=== PATIENT | male | born 1965 | race Two or more races ===

== ENCOUNTER 2017-03-30 19:11 | Emergency (ER) | payer MEDICAID, OTHER ==
[~2017-03-30] VITALS: Ht 177.8 cm; Wt 72.6 kg
[2017-03-30 19:20] VITALS: BP 165/96
[2017-03-31] MEDS ORDERED: THIAMINE INJ 100 MG, MULTIPLE VITAMIN 10 ML, FOLIC ACID 1 MG, MAGNESIUM SULF SDV 50% 8 ... IV SCH ×5 (12:00)
== END 2017-03-30 21:06 | disposition left against medical advice (07) ==
LOC: ER 19:18
DX: F10.129 Alcohol abuse with intoxication, unspecified (principal); Z59.0 Homelessness; Z87.891 Personal history of nicotine dependence

== ENCOUNTER 2017-03-31 07:12 | Emergency (ER) | payer MEDICAID ==
[~2017-03-31] VITALS: Ht 180.3 cm; Wt 81.6 kg
[2017-03-31 08:08] VITALS: BP 112/78
== END 2017-03-31 08:28 | disposition home or self-care (01) ==
LOC: ER 07:12
DX: L02.424 Furuncle of left upper limb (principal); L02.423 Furuncle of right upper limb; F10.10 Alcohol abuse, uncomplicated; Z87.891 Personal history of nicotine dependence; Z59.0 Homelessness

== ENCOUNTER 2017-05-10 20:33 | Emergency (ER) | payer MEDICAID ==
[~2017-05-10] VITALS: Ht 180.3 cm; Wt 79.4 kg
[2017-05-11 04:52] VITALS: BP 124/88
[2017-05-11] MEDS ORDERED: SODIUM CHLORIDE 0.9% 1,000 ML IVB ONE (04:55)
== END 2017-05-11 06:36 | disposition home or self-care (01) ==
LOC: ER 20:37
DX: F10.129 Alcohol abuse with intoxication, unspecified (principal); Z59.0 Homelessness; Z87.891 Personal history of nicotine dependence
CPT/HCPCS: 36415; 80320; 93005; 96360

== ENCOUNTER 2017-05-17 19:38 | Emergency (ER) | payer MEDICAID ==
[~2017-05-17] VITALS: Ht 182.9 cm; Wt 86.2 kg
[2017-05-17] MEDS ORDERED: SODIUM CHLORIDE 0.9% 1,000 ML IVB ONE (21:05)
[2017-05-17 22:06] LABS: Basophils # (auto) 0 uL; Basophils % (auto) 0.7 % (0.0-2.0); CONDITION Y; DEFINITIVE SEE PRINTOUT; Eosinophils # (auto) 0.1 uL; Eosinophils % (auto) 3.1 % (0.0-7.0); Hematocrit 36.5 % (41.0-53.0); Hemoglobin 12.5 g/dL (13.5-17.5); Lymphocytes # (auto) 2.1 uL; Lymphocytes % (auto) 47.4 % (10.0-50.0); Mean Corpuscular Hemoglobin 37.8 pg (28.0-32.0); Mean Corpuscular Hgb Conc. 34.2 g/dL (32.0-36.0); Mean Corpuscular Volume 110.6 fL (80.0-100.0); Mean Platelet Volume 7.3 fL (7.4-10.4); Monocytes # (auto) 0.3 uL; Monocytes % (auto) 6.2 % (0.0-12.0); Neutrophils # (auto) 1.9 uL; Neutrophils % (auto) 42.6 % (37.0-80.0); Platelet Count (auto) 97 10^3/uL (140-450); Red Cell Distribution Width 13.5 % (11.6-16.0); White Blood Cell 4.4 10^3/uL (4.4-10.8)
[2017-05-17 22:32] LABS: Acetaminophen < 2.0 ug/mL (10-30); Salicylate < 1.7 mg/dL (2.8-20.0)
[2017-05-17 22:33] LABS: Albumin 3.4 g/dL (3.4-5.0); BUN/Creatinine Ratio 21.3; Bilirubin, Total 0.5 mg/dL (0.2-1.0); Calcium 7.8 mg/dL (8.5-10.1); Potassium 3.3 mmol/L (3.5-5.1); Total Protein 7.2 g/dL (6.4-8.2)
[2017-05-17 23:08] LABS: Macrocytosis Moderate; Platelet Estimate Decreased
[2017-05-18 04:52] VITALS: BP 112/62
== END 2017-05-18 04:37 | disposition home or self-care (01) ==
LOC: ER 19:38 → EDBD 19:38 → ER 05-18 04:37
DX: F10.129 Alcohol abuse with intoxication, unspecified (principal); R41.82 Altered mental status, unspecified; Z87.891 Personal history of nicotine dependence; Z59.0 Homelessness
CPT/HCPCS: 36415; 80053; 80320; 80329; 85025; 93971; 96360; 96361; 99285; J7030

== ENCOUNTER 2017-05-24 12:09 | Inpatient (IN) | payer MEDICAID ==
[~2017-05-24] VITALS: Ht 180.3 cm; Wt 83.3 kg
[2017-05-24] MEDS ORDERED: LORazepam 2MG/ML-1ML VIAL IV ONE (13:00)
[2017-05-24] MEDS ORDERED: SODIUM CHLORIDE 0.9% 1,000 ML IV ONE (13:00)
[2017-05-24 13:12] LABS: Basophils # (auto) 0 uL; Basophils % (auto) 0.9 % (0.0-2.0); CONDITION Y; DEFINITIVE SEE PRINTOUT; Eosinophils # (auto) 0.2 uL; Eosinophils % (auto) 4.6 % (0.0-7.0); Hematocrit 40.8 % (41.0-53.0); Hemoglobin 14.2 g/dL (13.5-17.5); Lymphocytes # (auto) 2.1 uL; Lymphocytes % (auto) 43.4 % (10.0-50.0); Mean Corpuscular Hemoglobin 38.7 pg (28.0-32.0); Mean Corpuscular Hgb Conc. 34.8 g/dL (32.0-36.0); Mean Corpuscular Volume 111.2 fL (80.0-100.0); Mean Platelet Volume 6.7 fL (7.4-10.4); Monocytes # (auto) 0.3 uL; Monocytes % (auto) 6.7 % (0.0-12.0); Neutrophils # (auto) 2.2 uL; Neutrophils % (auto) 44.4 % (37.0-80.0); Platelet Count (auto) 125 10^3/uL (140-450); Red Cell Distribution Width 13.7 % (11.6-16.0); White Blood Cell 4.9 10^3/uL (4.4-10.8)
[2017-05-24] MEDS ORDERED: THIAMINE INJ 100 MG, MULTIPLE VITAMIN 10 ML, FOLIC ACID 1 MG, MAGNESIUM SULF SDV 50% 8 ... IV ONE ×5 (13:15)
[2017-05-24 13:39] LABS: Albumin 3.6 g/dL (3.4-5.0); BUN/Creatinine Ratio 21.9; Bilirubin, Total 0.6 mg/dL (0.2-1.0); Calcium 8.4 mg/dL (8.5-10.1); Potassium 3.5 mmol/L (3.5-5.1); Total Protein 7.7 g/dL (6.4-8.2)
[2017-05-24] MEDS: SODIUM CHLORIDE 0.9% 1,000 ML IV SCH (17:14)
[2017-05-24] MEDS ORDERED: HYDROcodone-ACET 5/325MG TAB PO PRN (17:15)
[2017-05-24] MEDS ORDERED: LORazepam 2MG/ML-1ML VIAL IV PRN (17:15)
[2017-05-24] MEDS ORDERED: DOCUSATE SOD 100 MG CAP PO PRN (17:15)
[2017-05-24] MEDS ORDERED: ACETAMINOPHEN 325 MG TAB PO PRN (17:15)
[2017-05-24] MEDS ORDERED: TEMAZEPAM 15 MG CAP PO PRN (17:15)
[2017-05-24] MEDS ORDERED: MORPHINE SULF INJ 2 MG/ML SYRINGE 1ML IV PRN ×2 (17:15)
[2017-05-24] MEDS ORDERED: ONDANSETRON HCL 4 MG/2 ML VIAL IV PRN (17:15)
[2017-05-24] MEDS ORDERED: ALUM & MAG HYDROX-SIMETH LIQ(MAALOX) 30 ML PO PRN (17:15)
[2017-05-24] MEDS ORDERED: NITROGLYCERIN 0.4 MG SL TAB SL PRN (17:15)
[2017-05-24 17:53] LABS: B-Type Natriuretic Peptide 7.15 pg/mL (0-100)
[2017-05-24] MEDS: ATENOLOL 25 MG TAB PO SCH (22:09)
[2017-05-24] MEDS: GABAPENTIN 300 MG CAP PO SCH (22:09)
[2017-05-24] MEDS: FAMOTIDINE 20 MG TAB PO SCH (22:09)
[2017-05-25] VITALS: BP 138/81
[2017-05-25] MEDS: SODIUM CHLORIDE 0.9% 1,000 ML IV SCH ×3 (01:25→18:05)
[2017-05-25 05:00] VITALS: BP 125/87
[2017-05-25] MEDS: GABAPENTIN 300 MG CAP PO SCH ×3 (06:00→21:35)
[2017-05-25 07:04] LABS: BUN/Creatinine Ratio 22.2; Bilirubin, Total 0.7 mg/dL (0.2-1.0); Total Protein 6.7 g/dL (6.4-8.2)
[2017-05-25 07:15] LABS: Basophils # (auto) 0 uL; CONDITION Y; DEFINITIVE SEE PRINTOUT; Eosinophils # (auto) 0.1 uL; Eosinophils % (auto) 2.9 % (0.0-7.0); Hematocrit 33.8 % (41.0-53.0); Hemoglobin 11.8 g/dL (13.5-17.5); Lymphocytes # (auto) 1.3 uL; Lymphocytes % (auto) 40.9 % (10.0-50.0); Mean Corpuscular Hemoglobin 38.5 pg (28.0-32.0); Mean Corpuscular Volume 110.2 fL (80.0-100.0); Mean Platelet Volume 7.3 fL (7.4-10.4); Monocytes # (auto) 0.3 uL; Monocytes % (auto) 8.4 % (0.0-12.0); Neutrophils # (auto) 1.5 uL; Neutrophils % (auto) 46.8 % (37.0-80.0); Platelet Count (auto) 88 10^3/uL (140-450); Potassium 3.7 mmol/L (3.5-5.1); Red Cell Distribution Width 14.1 % (11.6-16.0); White Blood Cell 3.2 10^3/uL (4.4-10.8)
[2017-05-25 08:43] VITALS: BP 116/70
[2017-05-25] MEDS: FAMOTIDINE 20 MG TAB PO SCH ×2 (09:26→21:36)
[2017-05-25] MEDS: ASPirin-EC 81 mg tab PO SCH (09:26)
[2017-05-25] MEDS: MULTIPLE VITAMIN TAB PO SCH (09:26)
[2017-05-25] MEDS: ATENOLOL 25 MG TAB PO SCH ×2 (09:26→21:35)
[2017-05-25] MEDS: chlordiazePOXIDE HCL 25 MG CAP PO PRN ×2 (09:32→21:33)
[2017-05-25 12:48] VITALS: BP 125/85
[2017-05-25 16:23] VITALS: BP 127/83
[2017-05-25 21:05] VITALS: BP 137/71
[2017-05-26] MEDS: SODIUM CHLORIDE 0.9% 1,000 ML IV SCH (03:11)
[2017-05-26 05:25] VITALS: BP 130/79
[2017-05-26] MEDS: GABAPENTIN 300 MG CAP PO SCH (05:39)
[2017-05-26] MEDS: chlordiazePOXIDE HCL 25 MG CAP PO PRN (05:39)
[2017-05-26 06:48] LABS: Urine RBC None Seen /hpf (0 - 3)
[2017-05-26 07:01] LABS: Urine Bilirubin Negative (Negative); Urine Blood Negative /uL (Negative); Urine Color Yellow (Yellow); Urine Glucose Normal (Normal); Urine Ketone Negative (Negative); Urine Nitrite Negative (Negative); Urine Urobilinogen Normal (Negative); Urine pH 7.5 (5.0-8.0)
[2017-05-26 08:57] VITALS: BP 139/84
[2017-05-26] MEDS: MULTIPLE VITAMIN TAB PO SCH (10:09)
[2017-05-26] MEDS: ASPirin-EC 81 mg tab PO SCH (10:09)
[2017-05-26] MEDS: ATENOLOL 25 MG TAB PO SCH (10:10)
[2017-05-26] MEDS: FAMOTIDINE 20 MG TAB PO SCH (10:10)
== END 2017-05-26 11:50 | disposition left against medical advice (07) | DRG 770 ==
LOC: EDBD 12:09 → ER 12:09 → TELE 12:10 → TELE-WESTW 23:30
PROVIDERS: ADMIT Internal Medicine; ATTEND Internal Medicine
DX: F10.121 Alcohol abuse with intoxication delirium (principal); G92 Toxic encephalopathy; D69.6 Thrombocytopenia, unspecified; E83.51 Hypocalcemia; I67.2 Cerebral atherosclerosis; I65.23 Occlusion and stenosis of bilateral carotid arteries; E86.0 Dehydration; R94.5 Abnormal results of liver function studies; G40.909 Epilepsy, unspecified, not intractable, without status epilepticus; D63.8 Anemia in other chronic diseases classified elsewhere; F17.210 Nicotine dependence, cigarettes, uncomplicated; Z59.0 Homelessness
CPT/HCPCS: 36415; 70450; 71020; 80053; 80307; 80320; 81001; 83880; 84443; 85025; 87086; 87088; 87186; 93005; 93306

== ENCOUNTER 2017-06-09 18:10 | Emergency (ER) | payer MEDICAID ==
[~2017-06-09] VITALS: Ht 180.3 cm; Wt 79.4 kg
[2017-06-09 19:34] LABS: Basophils # (auto) 0.1 uL; Basophils % (auto) 1.1 % (0.0-2.0); Eosinophils # (auto) 0.4 uL; Eosinophils % (auto) 5.5 % (0.0-7.0); Hematocrit 38.9 % (41.0-53.0); Hemoglobin 13.4 g/dL (13.5-17.5); Lymphocytes # (auto) 3.8 uL; Lymphocytes % (auto) 47.7 % (10.0-50.0); Mean Corpuscular Hemoglobin 38.8 pg (28.0-32.0); Mean Corpuscular Hgb Conc. 34.6 g/dL (32.0-36.0); Mean Corpuscular Volume 112.2 fL (80.0-100.0); Mean Platelet Volume 6.1 fL (6.9-10.8); Monocytes # (auto) 0.6 uL; Monocytes % (auto) 7.6 % (0.0-12.0); Neutrophils # (auto) 3.1 uL; Neutrophils % (auto) 38.1 % (37.0-80.0); Platelet Count (auto) 339 10^3/uL (140-450); Red Cell Distribution Width 13.2 % (11.8-14.3)
[2017-06-09 20:09] LABS: Chloride 110 mmol/L (98-107); Potassium 4.2 mmol/L (3.5-5.1); Sodium 145 mmol/L (136-145)
[2017-06-09 20:13] LABS: Albumin 3.6 g/dL (3.4-5.0); Anion Gap 9 (5-15); Aspartate Aminotransferase 77 U/L (15-37); BUN/Creatinine Ratio 13.4; Blood Urea Nitrogen 11 mg/dL (7-18); Calcium 8.3 mg/dL (8.5-10.1); Carbon Dioxide 26 mmol/L (21-32); GFR African American 126 mL/min; GFR Non-African American 104 mL/min; Glucose 92 mg/dL (74-106); Magnesium 2.1 mg/dL (1.6-2.6)
[2017-06-09 20:18] LABS: Alkaline Phosphatase 158 U/L (45-117); Bilirubin, Total 0.2 mg/dL (0.2-1.0); Total Protein 7.9 g/dL (6.4-8.2)
[2017-06-09 22:33] LABS: Anisocytosis Slight; Platelet Estimate Adequate
[2017-06-09 22:34] LABS: Macrocytosis Marked
[2017-06-10] MEDS ORDERED: SODIUM CHLORIDE 0.9% 500 ML IV ONE ×2 (01:15→02:45)
[2017-06-10] MEDS ORDERED: FOLIC ACID 1 MG in D5W 5% 50 ML IV ONE (03:30)
[2017-06-10] MEDS ORDERED: THIAMINE HCL 100 MG/ML 2ML VIAL IV ONE (03:30)
[2017-06-10 05:08] LABS: Urine Bilirubin Negative (Negative); Urine Blood Negative /uL (Negative); Urine Color Yellow (Yellow); Urine Glucose Normal (Normal); Urine Ketone Negative (Negative); Urine Nitrite Negative (Negative); Urine RBC <1 /hpf (0 - 3); Urine Urobilinogen Normal (Negative)
[2017-06-10 05:15] VITALS: BP 108/73
== END 2017-06-10 05:30 | disposition home or self-care (01) ==
LOC: EDBD 18:10 → ER 18:18
DX: G92 Toxic encephalopathy (principal); F10.129 Alcohol abuse with intoxication, unspecified; Z59.0 Homelessness; Z87.891 Personal history of nicotine dependence
CPT/HCPCS: 36415; 71020; 80053; 80307; 80320; 81001; 83735; 84484; 85025; 93005; 96361; 96374; 99285; J3411; J7030; J7060

== ENCOUNTER 2017-06-13 13:50 | Emergency (ER) | payer MEDICAID ==
[~2017-06-13] VITALS: Ht 182.9 cm; Wt 79.4 kg
[2017-06-13] MEDS ORDERED: THIAMINE INJ 100 MG, MULTIPLE VITAMIN 10 ML, FOLIC ACID 1 MG, MAGNESIUM SULF SDV 50% 8 ... IV ONE ×5 (14:14)
[2017-06-13 15:06] LABS: Albumin 3.2 g/dL (3.4-5.0); BUN/Creatinine Ratio 10.6; Bilirubin, Total 0.2 mg/dL (0.2-1.0); Calcium 7.8 mg/dL (8.5-10.1); Potassium 3.3 mmol/L (3.5-5.1); Total Protein 7.3 g/dL (6.4-8.2)
[2017-06-13 15:36] LABS: Basophils # (auto) 0.1 uL; Basophils % (auto) 1.2 % (0.0-2.0); Eosinophils % (auto) 12.4 % (0.0-7.0); Hematocrit 37.7 % (41.0-53.0); Hemoglobin 12.9 g/dL (13.5-17.5); Lymphocytes # (auto) 3.3 uL; Lymphocytes % (auto) 41.9 % (10.0-50.0); Mean Corpuscular Hemoglobin 38.2 pg (28.0-32.0); Mean Corpuscular Hgb Conc. 34.3 g/dL (32.0-36.0); Mean Corpuscular Volume 111.4 fL (80.0-100.0); Monocytes # (auto) 0.4 uL; Monocytes % (auto) 5.2 % (0.0-12.0); Neutrophils # (auto) 3.1 uL; Neutrophils % (auto) 39.3 % (37.0-80.0); Nucleated Red Blood Cells % 0.2 %; Platelet Count (auto) 245 10^3/uL (140-450); Red Cell Distribution Width 13.1 % (11.8-14.3)
[2017-06-13] MEDS ORDERED: SODIUM CHLORIDE 0.9% 1,000 ML IV ONE (15:45)
[2017-06-13 16:57] LABS: Macrocytosis Marked; Platelet Estimate Adequate
[2017-06-13 18:50] VITALS: BP 122/78
== END 2017-06-13 19:06 | disposition left against medical advice (07) ==
LOC: EDBD 13:50 → ER 13:55
DX: F10.129 Alcohol abuse with intoxication, unspecified (principal); Y90.8 Blood alcohol level of 240 mg/100 ml or more; Z87.891 Personal history of nicotine dependence; Z59.0 Homelessness
CPT/HCPCS: 36415; 80053; 80320; 85025; 94761; 96365; 96366; 99285; J3411; J3475; J7030

== ENCOUNTER 2017-06-28 15:15 | Emergency (ER) | payer MEDICAID ==
[~2017-06-28] VITALS: Ht 182.9 cm; Wt 77.1 kg
[2017-06-28 15:35] VITALS: BP 114/75
[2017-06-28 16:13] LABS: Basophils # (auto) 0.1 uL; Basophils % (auto) 0.8 % (0.0-2.0); Eosinophils # (auto) 0.8 uL; Mean Platelet Volume 6.1 fL (6.9-10.8); Monocytes # (auto) 0.5 uL; Neutrophils # (auto) 3.4 uL; Nucleated Red Blood Cells % 0.1 %
[2017-06-28 16:15] LABS: Eosinophils % (auto) 10.6 % (0.0-7.0); Hematocrit 37.7 % (41.0-53.0); Hemoglobin 13.2 g/dL (13.5-17.5); Lymphocytes # (auto) 2.9 uL; Lymphocytes % (auto) 37.4 % (10.0-50.0); Mean Corpuscular Hemoglobin 38.2 pg (28.0-32.0); Mean Corpuscular Volume 109.2 fL (80.0-100.0); Monocytes % (auto) 6.8 % (0.0-12.0); Neutrophils % (auto) 44.4 % (37.0-80.0); Platelet Count (auto) 225 10^3/uL (140-450); Red Cell Distribution Width 12.7 % (11.8-14.3); White Blood Cell 7.8 10^3/uL (4.4-10.8)
[2017-06-28 16:34] LABS: Albumin 3.2 g/dL (3.4-5.0); Alkaline Phosphatase 122 U/L (45-117); Anion Gap 11 (5-15); Aspartate Aminotransferase 38 U/L (15-37); BUN/Creatinine Ratio 17.1; Bilirubin, Total 0.2 mg/dL (0.2-1.0); Blood Urea Nitrogen 14 mg/dL (7-18); Calcium 8.3 mg/dL (8.5-10.1); Carbon Dioxide 23 mmol/L (21-32); Chloride 108 mmol/L (98-107); GFR African American 126 mL/min; GFR Non-African American 104 mL/min; Glucose 95 mg/dL (74-106); Magnesium 1.8 mg/dL (1.6-2.6); Potassium 3.1 mmol/L (3.5-5.1); Sodium 142 mmol/L (136-145); Total Protein 7.1 g/dL (6.4-8.2)
== END 2017-06-28 22:00 | disposition left against medical advice (07) ==
LOC: EDBD 15:15 → ER 15:30
DX: F10.10 Alcohol abuse, uncomplicated (principal); Z53.21 Procedure and treatment not carried out due to patient leaving prior to being seen by health care provider
CPT/HCPCS: 36415; 71020; 80053; 80320; 83735; 84484; 85025; 93005

== ENCOUNTER 2017-07-19 13:50 | Observation (INO) | payer MEDICAID ==
[~2017-07-19] VITALS: Ht 165.1 cm; Wt 81.6 kg
[2017-07-19 14:28] LABS: Basophils # (auto) 0.1 uL; Eosinophils # (auto) 0.4 uL; Nucleated Red Blood Cells % 0.1 %
[2017-07-19 14:29] LABS: Basophils % (auto) 0.9 % (0.0-2.0); Eosinophils % (auto) 4.4 % (0.0-7.0); Hematocrit 39.2 % (41.0-53.0); Hemoglobin 13.6 g/dL (13.5-17.5); Lymphocytes % (auto) 49.3 % (10.0-50.0); Mean Corpuscular Hemoglobin 37.4 pg (28.0-32.0); Mean Corpuscular Hgb Conc. 34.6 g/dL (32.0-36.0); Mean Corpuscular Volume 108.1 fL (80.0-100.0); Monocytes # (auto) 0.6 uL; Monocytes % (auto) 7.1 % (0.0-12.0); Neutrophils # (auto) 3.1 uL; Neutrophils % (auto) 38.3 % (37.0-80.0); Platelet Count (auto) 221 10^3/uL (140-450); Red Blood Cells 3.63 10^6/uL (4.5-5.90); Red Cell Distribution Width 13.5 % (11.8-14.3); White Blood Cell 8.1 10^3/uL (4.4-10.8)
[2017-07-19 15:02] LABS: Partial Thromboplastin Time 29.5 sec (22.64-33.71); Prothrombin Time 10.9 sec (9.37-12.3)
[2017-07-19 15:03] LABS: Alanine Aminotransferase 29 U/L (16-61); Albumin 3.5 g/dL (3.4-5.0); Alkaline Phosphatase 129 U/L (45-117); Anion Gap 12 (5-15); Aspartate Aminotransferase 40 U/L (15-37); BUN/Creatinine Ratio 14.9; Bilirubin, Total 0.3 mg/dL (0.2-1.0); Blood Urea Nitrogen 11 mg/dL (7-18); Calcium 7.9 mg/dL (8.5-10.1); Carbon Dioxide 22 mmol/L (21-32); Chloride 108 mmol/L (98-107); GFR African American 142 mL/min; GFR Non-African American 118 mL/min; Glucose 104 mg/dL (74-106); Magnesium 1.8 mg/dL (1.6-2.6); Potassium 3.6 mmol/L (3.5-5.1); Sodium 142 mmol/L (136-145); Total Protein 7.4 g/dL (6.4-8.2)
[2017-07-19 15:45] LABS: Amphetamine Screen, Urine NEGATIVE (NEGATIVE); Barbiturate Scree,Urine NEGATIVE (NEGATIVE); Benzodiazephine Screen, Urine NEGATIVE (NEGATIVE); Cannabinoid Screen, Urine NEGATIVE (NEGATIVE); Cocaine Screen, Urine NEGATIVE (NEGATIVE); Opiate Scree,Urine NEGATIVE (NEGATIVE); Phencyclidine Screen, Urine NEGATIVE (NEGATIVE)
[2017-07-19] MEDS ORDERED: SODIUM CHLORIDE 0.9% 1,000 ML IV ONE (16:00)
[2017-07-19] MEDS ORDERED: THIAMINE INJ 100 MG, MULTIPLE VITAMIN 10 ML, FOLIC ACID 1 MG, MAGNESIUM SULF SDV 50% 8 ... IV SCH ×5 (16:30)
[2017-07-19 23:02] VITALS: BP 124/81
== END 2017-07-20 01:24 | disposition home or self-care (01) | DRG 203 ==
LOC: EDUNIT# 13:50 → ER 13:55 → OVERFLOW 14:36 → ER 07-20 01:24
PROVIDERS: ADMIT Family Medicine; ATTEND Family Medicine
DX: R07.89 Other chest pain (principal); I10 Essential (primary) hypertension; F10.129 Alcohol abuse with intoxication, unspecified; R06.02 Shortness of breath; F17.200 Nicotine dependence, unspecified, uncomplicated
CPT/HCPCS: 36415; 70450; 71010; 80053; 80307; 80320; 83735; 84484; 85025; 85610; 85730; 93005; 96361; 96365; 99285; G0378; J3411; J3475; J7030

== ENCOUNTER 2017-08-03 20:32 | Emergency (ER) | payer MEDICAID ==
[~2017-08-03] VITALS: Ht 180.3 cm; Wt 77.1 kg
[2017-08-03 20:37] VITALS: BP 122/84
[2017-08-03 21:24] LABS: Basophils # (auto) 0 uL; Basophils % (auto) 0.8 % (0.0-2.0); Eosinophils # (auto) 0.3 uL; Neutrophils # (auto) 2.2 uL; White Blood Cell 5.9 10^3/uL (4.4-10.8)
[2017-08-03 21:31] LABS: Albumin 3.7 g/dL (3.4-5.0); Anion Gap 9 (5-15); Aspartate Aminotransferase 96 U/L (15-37); BUN/Creatinine Ratio 15.7; Blood Urea Nitrogen 14 mg/dL (7-18); Calcium 8.2 mg/dL (8.5-10.1); Carbon Dioxide 27 mmol/L (21-32); Chloride 107 mmol/L (98-107); GFR African American 115 mL/min; GFR Non-African American 95 mL/min; Glucose 97 mg/dL (74-106); Magnesium 1.8 mg/dL (1.6-2.6); Potassium 3.6 mmol/L (3.5-5.1); Sodium 143 mmol/L (136-145)
[2017-08-03 21:39] LABS: B-Type Natriuretic Peptide 7.41 pg/mL (0-100)
[2017-08-03 21:40] LABS: Alkaline Phosphatase 237 U/L (45-117); Bilirubin, Total 0.3 mg/dL (0.2-1.0); Total Protein 7.8 g/dL (6.4-8.2)
[2017-08-03 21:44] LABS: Eosinophils % (auto) 5.1 % (0.0-7.0); Hematocrit 39.6 % (41.0-53.0); Hemoglobin 13.9 g/dL (13.5-17.5); Mean Corpuscular Volume 105.7 fL (80.0-100.0); Mean Platelet Volume 6.7 fL (6.9-10.8); Monocytes # (auto) 0.4 uL; Monocytes % (auto) 7.6 % (0.0-12.0); Neutrophils % (auto) 36.5 % (37.0-80.0); Nucleated Red Blood Cells % 0.1 %; Temperature: 23.1 C (20.0-25.0)
[2017-08-03 22:05] LABS: Platelet Count (auto) 93 10^3/uL (140-450)
== END 2017-08-04 09:00 | disposition left against medical advice (07) ==
LOC: ER 20:32 → EDBD 20:32 → ER 08-04 09:00
DX: F10.10 Alcohol abuse, uncomplicated (principal); M79.605 Pain in left leg; M79.604 Pain in right leg; Z53.21 Procedure and treatment not carried out due to patient leaving prior to being seen by health care provider
CPT/HCPCS: 36415; 80053; 80320; 83735; 83880; 84484; 85025; 85379

== ENCOUNTER 2017-08-04 10:22 | Emergency (ER) | payer MEDICAID ==
[~2017-08-04] VITALS: Ht 182.9 cm; Wt 81.6 kg
[2017-08-04 10:57] VITALS: BP 127/83
== END 2017-08-04 11:26 | disposition home or self-care (01) ==
LOC: EDBD 10:22 → ER 10:22
DX: M79.1 Myalgia (principal); F17.210 Nicotine dependence, cigarettes, uncomplicated; F10.10 Alcohol abuse, uncomplicated; Z59.0 Homelessness

== ENCOUNTER 2017-08-05 00:03 | Emergency (ER) | payer MEDICAID ==
[2017-08-05 10:15] VITALS: BP 115/82
== END 2017-08-05 10:19 | disposition home or self-care (01) ==
LOC: EDBD 00:03 → ER 00:07
DX: F10.120 Alcohol abuse with intoxication, uncomplicated (principal); Z87.891 Personal history of nicotine dependence; Z59.0 Homelessness

== ENCOUNTER 2017-08-06 21:14 | Emergency (ER) | payer MEDICAID ==
[~2017-08-06] VITALS: Ht 182.9 cm; Wt 83.9 kg
[2017-08-06 22:41] LABS: Basophils # (auto) 0.1 uL; Basophils % (auto) 1.2 % (0.0-2.0); Eosinophils # (auto) 0.3 uL; Eosinophils % (auto) 5.1 % (0.0-7.0); Hematocrit 40.8 % (41.0-53.0); Lymphocytes # (auto) 2.5 uL; Lymphocytes % (auto) 43.8 % (10.0-50.0); Mean Corpuscular Hemoglobin 36.3 pg (28.0-32.0); Mean Corpuscular Hgb Conc. 34.4 g/dL (32.0-36.0); Mean Corpuscular Volume 105.4 fL (80.0-100.0); Mean Platelet Volume 6.6 fL (6.9-10.8); Monocytes # (auto) 0.4 uL; Monocytes % (auto) 6.9 % (0.0-12.0); Neutrophils # (auto) 2.5 uL; Nucleated Red Blood Cells % 0.1 %; Platelet Count (auto) 91 10^3/uL (140-450); White Blood Cell 5.8 10^3/uL (4.4-10.8)
[2017-08-06 23:04] LABS: Albumin 4.2 g/dL (3.4-5.0); BUN/Creatinine Ratio 13.8; Bilirubin, Total 0.5 mg/dL (0.2-1.0); Calcium 8.5 mg/dL (8.5-10.1); Potassium 3.3 mmol/L (3.5-5.1); Total Protein 8.2 g/dL (6.4-8.2)
[2017-08-06 23:14] LABS: Platelet Estimate Decreased
[2017-08-06 23:15] LABS: Anisocytosis Moderate; Macrocytosis Moderate
[2017-08-06 23:24] LABS: B-Type Natriuretic Peptide 16.54 pg/mL (0-100)
[2017-08-06 23:37] LABS: Temperature: 23.3 C (20.0-25.0)
[2017-08-07] MEDS ORDERED: SODIUM CHLORIDE 0.9% 1,000 ML IVB ONE (01:50)
[2017-08-07] MEDS ORDERED: KETOROLAC TROMETH 30 MG/ML 1ML VIAL IV ONE (02:00)
[2017-08-07 04:20] VITALS: BP 132/74
== END 2017-08-07 06:08 | disposition home or self-care (01) ==
LOC: EDBD 21:14 → EDUNIT# 21:14 → ER 21:18
DX: F10.129 Alcohol abuse with intoxication, unspecified (principal); Y90.8 Blood alcohol level of 240 mg/100 ml or more; Z87.891 Personal history of nicotine dependence; Z59.0 Homelessness
CPT/HCPCS: 36415; 80053; 80320; 83880; 85025; 96361; 96374; 99284; J1885; J7030

== ENCOUNTER 2017-08-19 22:06 | Emergency (ER) | payer MEDICAID ==
[~2017-08-19] VITALS: Ht 182.9 cm; Wt 81.6 kg
[2017-08-19 22:15] VITALS: BP 112/72
[2017-08-19] MEDS ORDERED: SODIUM CHLORIDE 0.9% 1,000 ML IV ONE (23:15)
[2017-08-19 23:45] LABS: Basophils # (auto) 0.1 uL; Basophils % (auto) 1.2 % (0.0-2.0); Eosinophils # (auto) 0.1 uL; Monocytes # (auto) 0.4 uL; Neutrophils # (auto) 3.2 uL; Nucleated Red Blood Cells % 0.1 %; White Blood Cell 4.8 10^3/uL (4.4-10.8)
[2017-08-19 23:47] LABS: Eosinophils % (auto) 1.3 % (0.0-7.0); Hematocrit 40.4 % (41.0-53.0); Hemoglobin 13.9 g/dL (13.5-17.5); Lymphocytes % (auto) 21.6 % (10.0-50.0); Mean Corpuscular Hemoglobin 36.9 pg (28.0-32.0); Mean Corpuscular Hgb Conc. 34.5 g/dL (32.0-36.0); Mean Platelet Volume 6.3 fL (6.9-10.8); Neutrophils % (auto) 66.9 % (37.0-80.0); Platelet Count (auto) 145 10^3/uL (140-450); Red Cell Distribution Width 15.2 % (11.8-14.3)
[2017-08-20 00:04] LABS: Acetaminophen < 2.0 ug/mL (10-30); Salicylate < 1.7 mg/dL (2.8-20.0)
[2017-08-20] MEDS ORDERED: SODIUM CHLORIDE 0.9% 1,000 ML IVB ONE (00:14)
[2017-08-20 00:17] LABS: Albumin 3.9 g/dL (3.4-5.0); BUN/Creatinine Ratio 11.3; Bilirubin, Total 0.3 mg/dL (0.2-1.0); Calcium 7.9 mg/dL (8.5-10.1); Magnesium 2.1 mg/dL (1.6-2.6); Potassium 3.5 mmol/L (3.5-5.1); Total Protein 7.9 g/dL (6.4-8.2)
== END 2017-08-20 04:29 | disposition home or self-care (01) ==
LOC: EDBD 22:06 → ER 22:11
DX: G92 Toxic encephalopathy (principal); F10.129 Alcohol abuse with intoxication, unspecified; Z59.0 Homelessness; Z87.891 Personal history of nicotine dependence
CPT/HCPCS: 36415; 80053; 80320; 80329; 83735; 85025; 99284; J7030

== ENCOUNTER 2017-08-21 20:50 | Emergency (ER) | payer MEDICAID ==
[~2017-08-21] VITALS: Ht 182.9 cm; Wt 77.1 kg
[2017-08-21 21:28] VITALS: BP 149/85
[2017-08-21 21:49] LABS: Basophils # (auto) 0.1 uL; Eosinophils # (auto) 0.4 uL; Hemoglobin 13.8 g/dL (13.5-17.5); Lymphocytes # (auto) 2.5 uL; Monocytes # (auto) 0.5 uL
[2017-08-21 21:51] LABS: Basophils % (auto) 1.4 % (0.0-2.0); Eosinophils % (auto) 5.5 % (0.0-7.0); Hematocrit 39.4 % (41.0-53.0); Lymphocytes % (auto) 38.2 % (10.0-50.0); Mean Corpuscular Hemoglobin 36.9 pg (28.0-32.0); Mean Corpuscular Hgb Conc. 35.1 g/dL (32.0-36.0); Mean Corpuscular Volume 105.1 fL (80.0-100.0); Mean Platelet Volume 5.9 fL (6.9-10.8); Monocytes % (auto) 8.4 % (0.0-12.0); Neutrophils % (auto) 46.5 % (37.0-80.0); Platelet Count (auto) 142 10^3/uL (140-450); Red Cell Distribution Width 14.7 % (11.8-14.3); White Blood Cell 6.4 10^3/uL (4.4-10.8)
[2017-08-21 22:08] LABS: Albumin 3.6 g/dL (3.4-5.0); BUN/Creatinine Ratio 13.2; Calcium 8.3 mg/dL (8.5-10.1); Potassium 3.7 mmol/L (3.5-5.1)
[2017-08-21 22:23] LABS: Bilirubin, Total 0.2 mg/dL (0.2-1.0); Total Protein 7.6 g/dL (6.4-8.2)
== END 2017-08-22 04:46 | disposition left against medical advice (07) ==
LOC: EDBD 20:50 → ER 20:56
DX: S00.31XA Abrasion of nose, initial encounter (principal); F10.10 Alcohol abuse, uncomplicated; R42 Dizziness and giddiness; Z53.21 Procedure and treatment not carried out due to patient leaving prior to being seen by health care provider; W22.8XXA Striking against or struck by other objects, initial encounter; Y93.89 Activity, other specified; Y92.89 Other specified places as the place of occurrence of the external cause; Y99.8 Other external cause status
CPT/HCPCS: 36415; 70450; 80053; 80320; 85025

== ENCOUNTER 2017-08-22 19:52 | Emergency (ER) | payer MEDICAID ==
[~2017-08-22] VITALS: Ht 182.9 cm; Wt 90.7 kg
[2017-08-22 20:00] VITALS: BP 146/72
== END 2017-08-22 21:12 | disposition left against medical advice (07) ==
LOC: EDUNIT# 19:52 → EDBD 19:52 → ER 19:56
DX: F10.10 Alcohol abuse, uncomplicated (principal); Z53.21 Procedure and treatment not carried out due to patient leaving prior to being seen by health care provider

== ENCOUNTER 2017-09-08 23:17 | Emergency (ER) | payer MEDICAID ==
[~2017-09-08] VITALS: Ht 182.9 cm; Wt 81.6 kg
[2017-09-08 23:29] VITALS: BP 111/70
[2017-09-08 23:54] LABS: Basophils # (auto) 0.1 uL; Hemoglobin 14.4 g/dL (13.5-17.5); Monocytes # (auto) 0.6 uL
[2017-09-08 23:56] LABS: Basophils % (auto) 0.8 % (0.0-2.0); Eosinophils # (auto) 0.4 uL; Eosinophils % (auto) 4.9 % (0.0-7.0); Hematocrit 42.3 % (41.0-53.0); Lymphocytes # (auto) 3.4 uL; Lymphocytes % (auto) 44.3 % (10.0-50.0); Mean Corpuscular Hemoglobin 36.8 pg (28.0-32.0); Mean Corpuscular Hgb Conc. 34.1 g/dL (32.0-36.0); Mean Corpuscular Volume 107.9 fL (80.0-100.0); Neutrophils # (auto) 3.2 uL; Nucleated Red Blood Cells % 0.1 %; Platelet Count (auto) 109 10^3/uL (140-450); Red Cell Distribution Width 15.4 % (11.8-14.3); White Blood Cell 7.7 10^3/uL (4.4-10.8)
[2017-09-09 00:28] LABS: BUN/Creatinine Ratio 14.5; Bilirubin, Total 0.4 mg/dL (0.2-1.0); Potassium 3.6 mmol/L (3.5-5.1); Total Protein 8.1 g/dL (6.4-8.2)
== END 2017-09-09 03:57 | disposition left against medical advice (07) ==
LOC: EDBD 23:17 → ER 23:23
DX: F10.10 Alcohol abuse, uncomplicated (principal); Z53.21 Procedure and treatment not carried out due to patient leaving prior to being seen by health care provider
CPT/HCPCS: 36415; 80053; 80320; 85025

== ENCOUNTER 2017-09-09 15:21 | Emergency (ER) | payer MEDICAID ==
[~2017-09-09] VITALS: Ht 177.8 cm; Wt 90.7 kg
[2017-09-09] MEDS ORDERED: SODIUM CHLORIDE 0.9% 1,000 ML IVB ONE (17:19)
[2017-09-09] MEDS ORDERED: LORazepam 2MG/ML-1ML VIAL IV ONE (17:30)
[2017-09-09 17:54] LABS: Basophils # (auto) 0 uL; Eosinophils # (auto) 0.1 uL; Hemoglobin 12.3 g/dL (13.5-17.5); Lymphocytes # (auto) 1.8 uL; Monocytes # (auto) 0.4 uL; Neutrophils # (auto) 3.2 uL
[2017-09-09 17:57] LABS: Basophils % (auto) 0.9 % (0.0-2.0); Eosinophils % (auto) 2.2 % (0.0-7.0); Hematocrit 35.9 % (41.0-53.0); Lymphocytes % (auto) 31.7 % (10.0-50.0); Mean Corpuscular Hgb Conc. 34.3 g/dL (32.0-36.0); Mean Corpuscular Volume 107.7 fL (80.0-100.0); Mean Platelet Volume 6.4 fL (6.9-10.8); Monocytes % (auto) 7.6 % (0.0-12.0); Neutrophils % (auto) 57.6 % (37.0-80.0); Nucleated Red Blood Cells % 0.1 %; Platelet Count (auto) 87 10^3/uL (140-450); Red Cell Distribution Width 15.2 % (11.8-14.3); White Blood Cell 5.5 10^3/uL (4.4-10.8)
[2017-09-09 18:14] LABS: Albumin 3.4 g/dL (3.4-5.0); BUN/Creatinine Ratio 11.9; Calcium 7.4 mg/dL (8.5-10.1); Potassium 3.4 mmol/L (3.5-5.1)
[2017-09-09 18:19] LABS: Bilirubin, Total 0.4 mg/dL (0.2-1.0); Total Protein 6.8 g/dL (6.4-8.2)
[2017-09-09 18:53] VITALS: BP 129/69
== END 2017-09-09 19:37 | disposition home or self-care (01) ==
LOC: EDBD 15:21 → ER 15:30
DX: F10.129 Alcohol abuse with intoxication, unspecified (principal); Z59.0 Homelessness; Z87.891 Personal history of nicotine dependence
CPT/HCPCS: 36415; 80053; 80320; 85025; 94761; 96360; 96361; 99285; J2060; J7030

== ENCOUNTER 2017-09-12 04:16 | Emergency (ER) | payer MEDICAID ==
[~2017-09-12] VITALS: Ht 180.3 cm; Wt 81.6 kg
[2017-09-12 05:02] LABS: Basophils # (auto) 0 uL; Eosinophils # (auto) 0.2 uL; Hemoglobin 14.7 g/dL (13.5-17.5); Mean Corpuscular Hemoglobin 37.3 pg (28.0-32.0); Monocytes # (auto) 0.4 uL; Neutrophils # (auto) 2.7 uL; White Blood Cell 4.9 10^3/uL (4.4-10.8)
[2017-09-12 05:04] LABS: Basophils % (auto) 0.8 % (0.0-2.0); Eosinophils % (auto) 3.6 % (0.0-7.0); Hematocrit 41.8 % (41.0-53.0); Lymphocytes # (auto) 1.5 uL; Lymphocytes % (auto) 31.8 % (10.0-50.0); Mean Corpuscular Hgb Conc. 35.1 g/dL (32.0-36.0); Mean Corpuscular Volume 106.3 fL (80.0-100.0); Mean Platelet Volume 6.2 fL (6.9-10.8); Monocytes % (auto) 8.4 % (0.0-12.0); Neutrophils % (auto) 55.4 % (37.0-80.0); Nucleated Red Blood Cells % 0.2 %; Platelet Count (auto) 125 10^3/uL (140-450); Red Cell Distribution Width 15.5 % (11.8-14.3)
[2017-09-12 05:23] LABS: BUN/Creatinine Ratio 12.1; Calcium 8.3 mg/dL (8.5-10.1); Potassium 3.7 mmol/L (3.5-5.1)
[2017-09-12] MEDS ORDERED: SODIUM CHLORIDE 0.9% 1,000 ML IV ONE (06:59)
[2017-09-12] MEDS ORDERED: ceFAZolin 1GM/50ML 50 ML IV ONE (07:00)
[2017-09-12 08:35] VITALS: BP 112/78
== END 2017-09-12 08:53 | disposition short-term general hospital (02) ==
LOC: EDBD 04:16 → ER 04:16
DX: S02.2XXA Fracture of nasal bones, initial encounter for closed fracture (principal); S03.00XA Dislocation of jaw, unspecified side, initial encounter; F10.129 Alcohol abuse with intoxication, unspecified; Y90.8 Blood alcohol level of 240 mg/100 ml or more; Z59.0 Homelessness; Y08.89XA Assault by other specified means, initial encounter; Y93.89 Activity, other specified; Y99.8 Other external cause status; Y92.89 Other specified places as the place of occurrence of the external cause
CPT/HCPCS: 36415; 70450; 70486; 80048; 80320; 85025; 93005; 94761; 96361; 96374; 99285; J0690; J7030

== ENCOUNTER 2017-09-13 23:41 | Emergency (ER) | payer MEDICAID ==
[~2017-09-13] VITALS: Ht 170.2 cm; Wt 77.1 kg
[2017-09-13 23:51] VITALS: BP 145/76
[2017-09-13] MEDS ORDERED: SODIUM CHLORIDE 0.9% 1,000 ML IVB ONE (23:55)
[2017-09-14 01:20] LABS: Basophils # (auto) 0 uL; Eosinophils # (auto) 0.2 uL; Hematocrit 38.6 % (41.0-53.0); Hemoglobin 13.1 g/dL (13.5-17.5); White Blood Cell 4.1 10^3/uL (4.4-10.8)
[2017-09-14 01:22] LABS: Basophils % (auto) 0.3 % (0.0-2.0); Eosinophils % (auto) 4.8 % (0.0-7.0); Lymphocytes # (auto) 1.4 uL; Lymphocytes % (auto) 33.5 % (10.0-50.0); Mean Corpuscular Hemoglobin 36.9 pg (28.0-32.0); Mean Corpuscular Volume 108.3 fL (80.0-100.0); Monocytes # (auto) 0.4 uL; Monocytes % (auto) 11.1 % (0.0-12.0); Neutrophils % (auto) 50.3 % (37.0-80.0); Platelet Count (auto) 134 10^3/uL (140-450); Red Blood Cells 3.56 10^6/uL (4.5-5.90); Red Cell Distribution Width 15.6 % (11.8-14.3)
[2017-09-14 01:35] LABS: Acetaminophen < 2.0 ug/mL (10-30); Salicylate < 1.7 mg/dL (2.8-20.0)
[2017-09-14 01:36] LABS: Albumin 3.6 g/dL (3.4-5.0); BUN/Creatinine Ratio 7.8; Calcium 7.9 mg/dL (8.5-10.1); Potassium 3.1 mmol/L (3.5-5.1)
[2017-09-14 01:49] LABS: Bilirubin, Total 0.5 mg/dL (0.2-1.0); Total Protein 7.4 g/dL (6.4-8.2)
== END 2017-09-14 04:35 | disposition left against medical advice (07) ==
LOC: EDBD 23:41 → ER 23:43
DX: F10.129 Alcohol abuse with intoxication, unspecified (principal); Z87.891 Personal history of nicotine dependence; Z59.0 Homelessness
CPT/HCPCS: 36415; 80053; 80320; 80329; 85025; 93005

== ENCOUNTER 2017-10-19 01:13 | Emergency (ER) | payer MEDICAID ==
[~2017-10-19] VITALS: Ht 182.9 cm; Wt 80.7 kg
[2017-10-19] MEDS ORDERED: SODIUM CHLORIDE 0.9% 1,000 ML IV ONE (03:58)
[2017-10-19 05:51] LABS: Basophils # (auto) 0 uL; Eosinophils # (auto) 0.1 uL; Hemoglobin 11.9 g/dL (13.5-17.5); Lymphocytes # (auto) 1.7 uL; Monocytes # (auto) 0.3 uL; Neutrophils # (auto) 1.9 uL; Nucleated Red Blood Cells % 0.2 %
[2017-10-19 05:52] LABS: Basophils % (auto) 0.7 % (0.0-2.0); Eosinophils % (auto) 1.9 % (0.0-7.0); Lymphocytes % (auto) 42.6 % (10.0-50.0); Mean Corpuscular Hemoglobin 38.5 pg (28.0-32.0); Mean Corpuscular Hgb Conc. 35.1 g/dL (32.0-36.0); Mean Corpuscular Volume 109.7 fL (80.0-100.0); Monocytes % (auto) 7.5 % (0.0-12.0); Neutrophils % (auto) 47.3 % (37.0-80.0); Platelet Count (auto) 95 10^3/uL (140-450); Red Blood Cells 3.09 10^6/uL (4.5-5.90); Red Cell Distribution Width 14.2 % (11.8-14.3)
[2017-10-19 06:03] LABS: INR 0.99 (0.9-1.15); Partial Thromboplastin Time 25.5 sec (22.64-33.71); Prothrombin Time 10.8 sec (9.37-12.3)
[2017-10-19] MEDS ORDERED: cefTRIAXone 1GM/10ml IVPUSH 10 ML IV ONE (06:15)
[2017-10-19 06:21] LABS: Albumin 4.1 g/dL (3.4-5.0); BUN/Creatinine Ratio 15.6; Potassium 3.1 mmol/L (3.5-5.1)
[2017-10-19] MEDS ORDERED: POTASSIUM CHL 10% (20 MEQ/15ML) 15ml ORAL SOLN GT ONE (07:45)
[2017-10-19 09:26] LABS: Urine Bacteria NONE SEEN /hpf (None Seen); Urine Blood Negative /uL (Negative); Urine Specific Gravity 1.013 (1.001-1.035); Urine WBC <1 /hpf (0 - 3)
[2017-10-19 09:48] LABS: Amphetamine Screen, Urine NEGATIVE (NEGATIVE); Barbiturate Scree,Urine NEGATIVE (NEGATIVE); Benzodiazephine Screen, Urine NEGATIVE (NEGATIVE); Cannabinoid Screen, Urine NEGATIVE (NEGATIVE); Cocaine Screen, Urine NEGATIVE (NEGATIVE); Opiate Scree,Urine NEGATIVE (NEGATIVE); Phencyclidine Screen, Urine NEGATIVE (NEGATIVE)
[2017-10-19 10:07] VITALS: BP 110/61
== END 2017-10-19 10:47 | disposition home or self-care (01) ==
LOC: EDBD 01:13 → ER 01:20
DX: F10.129 Alcohol abuse with intoxication, unspecified (principal); E87.6 Hypokalemia; M79.605 Pain in left leg; M79.604 Pain in right leg; F17.210 Nicotine dependence, cigarettes, uncomplicated; Y90.8 Blood alcohol level of 240 mg/100 ml or more; Z59.0 Homelessness
CPT/HCPCS: 36415; 80053; 80307; 80320; 81001; 85025; 85610; 85730; 93970; 96361; 96374; 99285; J7030

== ENCOUNTER 2018-07-11 14:08 | Observation (INO) | payer MEDICAID ==
[~2018-07-11] VITALS: Ht 154.9 cm; Wt 95.3 kg
[2018-07-11 14:18] VITALS: BP 114/82
[2018-07-11] MEDS ORDERED: SODIUM CHLORIDE 0.9% 1,000 ML IVB ONE ×2 (14:25→17:15)
[2018-07-12] MEDS ORDERED: THIAMINE INJ 100 MG, MULTIPLE VITAMIN 10 ML, FOLIC ACID 1 MG, MAGNESIUM SULF SDV 50% 8 ... IV SCH ×5 (12:00)
== END 2018-07-11 17:51 | disposition home or self-care (01) | DRG 775 ==
LOC: EDBD → ER 14:11 → OVERFLOW 14:12 → ER 17:51
PROVIDERS: ADMIT Family Medicine; ATTEND Family Medicine
DX: F10.10 Alcohol abuse, uncomplicated (principal); F17.210 Nicotine dependence, cigarettes, uncomplicated; Z59.0 Homelessness
CPT/HCPCS: 71045; 93005; 99285; G0378

== ENCOUNTER 2018-07-16 12:05 | Emergency (ER) | payer MEDICAID ==
[~2018-07-16] VITALS: Ht 185.4 cm; Wt 81.6 kg
[2018-07-16] MEDS ORDERED: SODIUM CHLORIDE 0.9% 1,000 ML IV ONE (12:34)
[2018-07-16] MEDS ORDERED: KETOROLAC TROMETH 30 MG/ML 1ML VIAL IV ONE (12:45)
[2018-07-16 13:32] LABS: Eosinophils # (auto) 0.2 uL; Monocytes # (auto) 0.3 uL; White Blood Cell 3.5 10^3/uL (4.4-10.8)
[2018-07-16 13:34] LABS: Basophils # (auto) 0 uL; Basophils % (auto) 1.4 % (0.0-2.0); Hematocrit 38.5 % (41.0-53.0); Hemoglobin 13.4 g/dL (13.5-17.5); Lymphocytes # (auto) 1.5 uL; Lymphocytes % (auto) 43.4 % (10.0-50.0); Mean Corpuscular Hemoglobin 36.1 pg (28.0-32.0); Mean Corpuscular Hgb Conc. 34.8 g/dL (32.0-36.0); Mean Corpuscular Volume 103.7 fL (80.0-100.0); Monocytes % (auto) 8.3 % (0.0-12.0); Neutrophils # (auto) 1.5 uL; Neutrophils % (auto) 41.9 % (37.0-80.0); Nucleated Red Blood Cells % 0.1 %; Platelet Count (auto) 120 10^3/uL (140-450); Red Blood Cells 3.71 10^6/uL (4.5-5.90); Red Cell Distribution Width 15.8 % (11.8-14.3)
[2018-07-16 13:48] LABS: Calcium 7.7 mg/dL (8.5-10.1); Potassium 3.6 mmol/L (3.5-5.1)
[2018-07-16 13:55] LABS: BUN/Creatinine Ratio 12.6; Bilirubin, Total 0.4 mg/dL (0.2-1.0); Total Protein 7.1 g/dL (6.4-8.2)
[2018-07-16 14:55] VITALS: BP 100/60
== END 2018-07-16 15:42 | disposition home or self-care (01) ==
LOC: ER 12:05 → EDBD 12:05 → ER 15:42
DX: G89.4 Chronic pain syndrome (principal); M79.605 Pain in left leg; M79.604 Pain in right leg; F17.210 Nicotine dependence, cigarettes, uncomplicated; Z59.0 Homelessness
CPT/HCPCS: 36415; 80053; 80320; 85025; 96374; 99284; J1885; J7030

== ENCOUNTER 2018-08-27 00:20 | Emergency (ER) | payer MEDICAID ==
[~2018-08-27] VITALS: Ht 182.9 cm; Wt 99.8 kg
[2018-08-27 00:24] VITALS: BP 146/91
== END 2018-08-27 04:52 | disposition home or self-care (01) ==
LOC: EDBD → ER 00:20
DX: M79.605 Pain in left leg (principal); M79.604 Pain in right leg; R21 Rash and other nonspecific skin eruption; F17.210 Nicotine dependence, cigarettes, uncomplicated; Z59.0 Homelessness

== ENCOUNTER 2018-09-08 11:20 | Emergency (ER) | payer MEDICAID ==
[~2018-09-08] VITALS: Ht 185.4 cm; Wt 59.2 kg
[2018-09-08 12:31] LABS: Mean Corpuscular Hgb Conc. 34.7 g/dL (32.0-36.0); White Blood Cell 4.9 10^3/uL (4.4-10.8)
[2018-09-08 12:32] LABS: Basophils # (auto) 0 uL; Basophils % (auto) 0.6 % (0.0-2.0); Eosinophils # (auto) 0.3 uL; Eosinophils % (auto) 6.2 % (0.0-7.0); Hematocrit 43.7 % (41.0-53.0); Hemoglobin 15.2 g/dL (13.5-17.5); Lymphocytes # (auto) 2.5 uL; Lymphocytes % (auto) 50.3 % (10.0-50.0); Mean Corpuscular Volume 106.7 fL (80.0-100.0); Monocytes # (auto) 0.2 uL; Neutrophils # (auto) 1.9 uL; Neutrophils % (auto) 37.9 % (37.0-80.0); Nucleated Red Blood Cells % 0.1 %; Platelet Count (auto) 147 10^3/uL (140-450); Red Cell Distribution Width 14.1 % (11.8-14.3)
[2018-09-08 12:39] LABS: Anion Gap 10 (5-15); Aspartate Aminotransferase 37 U/L (15-37); BUN/Creatinine Ratio 15.7; Blood Urea Nitrogen 11 mg/dL (7-18); Calcium 7.9 mg/dL (8.5-10.1); Carbon Dioxide 23 mmol/L (21-32); Chloride 109 mmol/L (98-107); GFR African American 151 mL/min; GFR Non-African American 124 mL/min; Glucose 85 mg/dL (74-106); Magnesium 1.9 mg/dL (1.6-2.6); Potassium 3.6 mmol/L (3.5-5.1); Sodium 142 mmol/L (136-145)
[2018-09-08 12:48] LABS: Alanine Aminotransferase 29 U/L (16-61); Alkaline Phosphatase 109 U/L (45-117); Bilirubin, Total 0.3 mg/dL (0.2-1.0); Total Protein 7.4 g/dL (6.4-8.2)
[2018-09-08] MEDS ORDERED: SODIUM CHLORIDE 0.9% 1,000 ML IV ONE (14:45)
[2018-09-08 17:43] VITALS: BP 118/81
== END 2018-09-08 18:20 | disposition home or self-care (01) ==
LOC: EDBD 11:20 → ER 11:20
DX: F10.229 Alcohol dependence with intoxication, unspecified (principal); M54.9 Dorsalgia, unspecified; F17.210 Nicotine dependence, cigarettes, uncomplicated; Z59.0 Homelessness
CPT/HCPCS: 36415; 80053; 80320; 83735; 84484; 85025; 93005; 94761; 99284; J7030

== ENCOUNTER 2018-10-31 12:33 | Emergency (ER) | payer MEDICAID ==
[~2018-10-31] VITALS: Ht 182.9 cm; Wt 63.5 kg
[2018-10-31 12:40] VITALS: BP 146/92
== END 2018-10-31 15:35 | disposition left against medical advice (07) ==
LOC: EDUNIT# 12:33 → EDBD 12:33 → ER 12:42 → EDBD 12:42 → ER 15:35
DX: M79.672 Pain in left foot (principal); M79.671 Pain in right foot; Z53.21 Procedure and treatment not carried out due to patient leaving prior to being seen by health care provider

== ENCOUNTER 2018-11-15 19:34 | Emergency (ER) | payer MEDICAID ==
[2018-11-15] MEDS ORDERED: SODIUM CHLORIDE 0.9% 3,000 ML IV ONE (20:30)
== END 2018-11-15 21:46 | disposition left against medical advice (07) ==
LOC: EDBD 19:34 → ER 19:40
DX: F10.129 Alcohol abuse with intoxication, unspecified (principal); F17.210 Nicotine dependence, cigarettes, uncomplicated; Z59.0 Homelessness

== ENCOUNTER 2018-12-02 20:45 | Emergency (ER) | payer MEDICAID ==
[~2018-12-02] VITALS: Ht 182.9 cm; Wt 81.6 kg
[2018-12-03 05:54] VITALS: BP 131/86
[2018-12-03] MEDS ORDERED: cefTRIAXone SOD 1,000 MG VL IM ONE (07:00)
== END 2018-12-03 09:01 | disposition home or self-care (01) ==
LOC: EDBD 20:45 → ER 20:50
DX: L30.9 Dermatitis, unspecified (principal); F17.210 Nicotine dependence, cigarettes, uncomplicated; Z59.0 Homelessness
CPT/HCPCS: 96372; 99283; J0696

== ENCOUNTER 2018-12-03 17:09 | Emergency (ER) | payer MEDICAID ==
[~2018-12-03] VITALS: Ht 185.4 cm; Wt 81.6 kg
[2018-12-03 17:30] VITALS: BP 110/71
[2018-12-03] MEDS ORDERED: SODIUM CHLORIDE 0.9% 1,000 ML IV ONE (17:37)
[2018-12-03 19:51] LABS: Basophils # (auto) 0 uL; Eosinophils # (auto) 0.1 uL; Hematocrit 40.1 % (41.0-53.0); Lymphocytes # (auto) 1.8 uL; Mean Corpuscular Hemoglobin 36.5 pg (28.0-32.0); Monocytes # (auto) 0.3 uL; Neutrophils # (auto) 1.5 uL; Nucleated Red Blood Cells % 0.2 %; White Blood Cell 3.8 10^3/uL (4.4-10.8)
[2018-12-03 19:55] LABS: Neutrophils % (auto) 40.1 % (37.0-80.0)
[2018-12-03 19:56] LABS: Albumin 4.2 g/dL (3.4-5.0); BUN/Creatinine Ratio 19.4; Basophils % (auto) 1.3 % (0.0-2.0); Eosinophils % (auto) 3.7 % (0.0-7.0); Hemoglobin 13.9 g/dL (13.5-17.5); Lymphocytes % (auto) 46.8 % (10.0-50.0); Monocytes % (auto) 8.1 % (0.0-12.0); Potassium 3.7 mmol/L (3.5-5.1); Red Blood Cells 3.81 10^6/uL (4.5-5.90)
[2018-12-03 19:57] LABS: Mean Corpuscular Hgb Conc. 34.7 g/dL (32.0-36.0); Mean Corpuscular Volume 105.2 fL (80.0-100.0); Platelet Count (auto) 76 10^3/uL (140-450); Red Cell Distribution Width 14.9 % (11.8-14.3)
[2018-12-03 20:01] LABS: Bilirubin, Total 0.5 mg/dL (0.2-1.0); Total Protein 7.7 g/dL (6.4-8.2)
== END 2018-12-03 21:13 | disposition left against medical advice (07) ==
LOC: ER 17:09
DX: F10.229 Alcohol dependence with intoxication, unspecified (principal); F17.210 Nicotine dependence, cigarettes, uncomplicated; M79.604 Pain in right leg; M79.605 Pain in left leg; Z59.0 Homelessness
CPT/HCPCS: 36415; 80053; 80320; 85025; 94761

== ENCOUNTER 2018-12-05 13:30 | Emergency (ER) | payer MEDICAID ==
[~2018-12-05] VITALS: Ht 152.4 cm; Wt 81.6 kg
[2018-12-05 13:47] VITALS: BP 124/76
[2018-12-05] MEDS ORDERED: SODIUM CHLORIDE 0.9% 1,000 ML IV ONE ×2 (15:53)
[2018-12-06] MEDS ORDERED: MULTIPLE VITAMIN 10 ML, MAGNESIUM SULF SDV 50% 8 MEQ in SODIUM CHLORIDE 0.9% 1,000 ML IV SCH (12:00)
== END 2018-12-05 20:13 | disposition home or self-care (01) ==
LOC: EDBD 13:30 → ER 13:34
DX: R21 Rash and other nonspecific skin eruption (principal); F10.129 Alcohol abuse with intoxication, unspecified; F17.210 Nicotine dependence, cigarettes, uncomplicated; Y90.9 Presence of alcohol in blood, level not specified

== ENCOUNTER 2018-12-06 13:23 | Emergency (ER) | payer MEDICAID ==
[~2018-12-06] VITALS: Ht 172.7 cm; Wt 72.6 kg
[2018-12-06 13:48] VITALS: BP 122/79
== END 2018-12-06 22:47 | disposition left against medical advice (07) ==
LOC: EDBD 13:23 → EDUNIT# 13:23 → ER 13:38
DX: M79.605 Pain in left leg (principal); M79.604 Pain in right leg; Z53.21 Procedure and treatment not carried out due to patient leaving prior to being seen by health care provider

== ENCOUNTER 2018-12-18 08:28 | Emergency (ER) | payer MEDICAID ==
[~2018-12-18] VITALS: Ht 180.3 cm; Wt 86.2 kg
[2018-12-18] MEDS ORDERED: SODIUM CHLORIDE 0.9% 1,000 ML IV ONE ×2 (09:00→09:12)
[2018-12-18 09:26] LABS: Urine Bacteria NONE SEEN /hpf (None Seen); Urine Blood Negative /uL (Negative); Urine Specific Gravity 1.007 (1.001-1.035); Urine WBC <1 /hpf (0 - 3)
[2018-12-18 09:29] LABS: Amphetamine Screen, Urine NEGATIVE (NEGATIVE); Barbiturate Scree,Urine NEGATIVE (NEGATIVE); Benzodiazephine Screen, Urine NEGATIVE (NEGATIVE); Cannabinoid Screen, Urine NEGATIVE (NEGATIVE); Cocaine Screen, Urine NEGATIVE (NEGATIVE); Opiate Scree,Urine NEGATIVE (NEGATIVE); Phencyclidine Screen, Urine NEGATIVE (NEGATIVE)
[2018-12-18 10:14] LABS: Eosinophils # (auto) 0.2 uL; Hemoglobin 13.5 g/dL (13.5-17.5); Lymphocytes # (auto) 2.5 uL; Monocytes # (auto) 0.4 uL; Neutrophils # (auto) 1.6 uL; Nucleated Red Blood Cells % 0.1 %; White Blood Cell 4.7 10^3/uL (4.4-10.8)
[2018-12-18 10:16] LABS: Basophils # (auto) 0.1 uL; Basophils % (auto) 1.2 % (0.0-2.0); Eosinophils % (auto) 3.3 % (0.0-7.0); Hematocrit 39.3 % (41.0-53.0); Lymphocytes % (auto) 52.9 % (10.0-50.0); Mean Corpuscular Hemoglobin 36.9 pg (28.0-32.0); Mean Corpuscular Hgb Conc. 34.3 g/dL (32.0-36.0); Mean Corpuscular Volume 107.5 fL (80.0-100.0); Monocytes % (auto) 7.6 % (0.0-12.0); Platelet Count (auto) 203 10^3/uL (140-450); Red Blood Cells 3.66 10^6/uL (4.5-5.90); Red Cell Distribution Width 16.1 % (11.8-14.3)
[2018-12-18 10:32] LABS: Albumin 3.8 g/dL (3.4-5.0); BUN/Creatinine Ratio 14.7; Calcium 7.9 mg/dL (8.5-10.1); Magnesium 2.2 mg/dL (1.6-2.6); Potassium 3.4 mmol/L (3.5-5.1)
[2018-12-18 10:43] LABS: Bilirubin, Total 0.3 mg/dL (0.2-1.0); Total Protein 7.1 g/dL (6.4-8.2)
[2018-12-18 10:58] LABS: Blood Alcohol 486.5 mg/dL (0-5)
[2018-12-18] MEDS ORDERED: MULTIPLE VITAMIN 10 ML, MAGNESIUM SULF SDV 50% 8 MEQ in SODIUM CHLORIDE 0.9% 1,000 ML IV SCH (12:00)
[2018-12-18 12:12] VITALS: BP 132/71
== END 2018-12-18 14:05 | disposition home or self-care (01) ==
LOC: EDBD → ER 08:28 → EDBD 08:28 → ER 14:05
DX: F10.129 Alcohol abuse with intoxication, unspecified (principal); R41.82 Altered mental status, unspecified; F17.210 Nicotine dependence, cigarettes, uncomplicated; F32.9 Major depressive disorder, single episode, unspecified
CPT/HCPCS: 36415; 80053; 80307; 80320; 81001; 83735; 85025; 93005; 96361; 96365; 99284; J3475; J7030

== ENCOUNTER 2018-12-18 15:08 | Emergency (ER) | payer MEDICAID ==
[~2018-12-18] VITALS: Ht 182.9 cm; Wt 88.5 kg
[2018-12-18 15:26] VITALS: BP 127/78
== END 2018-12-18 16:33 | disposition home or self-care (01) ==
LOC: ER 15:08
DX: L40.9 Psoriasis, unspecified (principal); F17.210 Nicotine dependence, cigarettes, uncomplicated; Z76.0 Encounter for issue of repeat prescription; Z59.0 Homelessness

== ENCOUNTER 2018-12-22 12:40 | Emergency (ER) | payer MEDICAID ==
[~2018-12-22] VITALS: Ht 182.9 cm; Wt 83.9 kg
[2018-12-22 13:40] VITALS: BP 127/87
[2018-12-22 13:52] LABS: Basophils # (auto) 0.1 uL; Eosinophils # (auto) 0.1 uL; Eosinophils % (auto) 2.8 % (0.0-7.0); Hemoglobin 13.5 g/dL (13.5-17.5); Monocytes # (auto) 0.2 uL; Neutrophils # (auto) 2.2 uL; Platelet Count (auto) 219 10^3/uL (140-450); Red Blood Cells 3.65 10^6/uL (4.5-5.90)
[2018-12-22 13:54] LABS: Basophils % (auto) 2.2 % (0.0-2.0); Hematocrit 39.2 % (41.0-53.0); Lymphocytes % (auto) 43.6 % (10.0-50.0); Mean Corpuscular Hgb Conc. 34.5 g/dL (32.0-36.0); Mean Corpuscular Volume 107.3 fL (80.0-100.0); Neutrophils % (auto) 47.4 % (37.0-80.0); Nucleated Red Blood Cells % 0.1 %; Red Cell Distribution Width 15.8 % (11.8-14.3); White Blood Cell 4.7 10^3/uL (4.4-10.8)
[2018-12-22 14:10] LABS: Albumin 4.1 g/dL (3.4-5.0); Calcium 8.3 mg/dL (8.5-10.1); Potassium 3.5 mmol/L (3.5-5.1)
[2018-12-22 14:17] LABS: BUN/Creatinine Ratio 14.9; Bilirubin, Total 0.4 mg/dL (0.2-1.0); Total Protein 7.5 g/dL (6.4-8.2)
[2018-12-22] MEDS ORDERED: SODIUM CHLORIDE 0.9% 1,000 ML IV ONE ×2 (16:16)
[2018-12-22] MEDS ORDERED: THIAMINE 100mg/ml INJ (200mg/2ml VIAL) IV ONE (16:30)
== END 2018-12-22 17:09 | disposition left against medical advice (07) ==
LOC: EDBD → ER 12:46 → TELE 22:40 → UNDOADMIN 22:40
DX: S01.21XA Laceration without foreign body of nose, initial encounter (principal); F10.229 Alcohol dependence with intoxication, unspecified; M79.604 Pain in right leg; M79.605 Pain in left leg; F17.210 Nicotine dependence, cigarettes, uncomplicated; Z59.0 Homelessness; X58.XXXA Exposure to other specified factors, initial encounter; Y93.89 Activity, other specified; Y99.8 Other external cause status; Y92.89 Other specified places as the place of occurrence of the external cause
CPT/HCPCS: 36415; 70450; 80053; 80320; 85025

== ENCOUNTER 2018-12-22 21:00 | Emergency (ER) | payer MEDICAID ==
[~2018-12-22] VITALS: Ht 175.3 cm; Wt 81.6 kg
[2018-12-22 21:08] VITALS: BP 113/69
== END 2018-12-23 07:22 | disposition left against medical advice (07) ==
LOC: EDBD 21:00 → ER 21:07
DX: M79.605 Pain in left leg (principal); M79.604 Pain in right leg; Z53.21 Procedure and treatment not carried out due to patient leaving prior to being seen by health care provider

== ENCOUNTER 2018-12-28 10:17 | Emergency (ER) | payer MEDICAID ==
[~2018-12-28] VITALS: Ht 152.4 cm; Wt 79.4 kg
[2018-12-28] MEDS ORDERED: SODIUM CHLORIDE 0.9% 1,000 ML IV ONE ×2 (10:33)
[2018-12-28 10:34] VITALS: BP 119/75
== END 2018-12-28 11:32 | disposition left against medical advice (07) ==
LOC: EDBD 10:17 → ER 10:22
DX: M79.605 Pain in left leg (principal); M79.604 Pain in right leg; F17.210 Nicotine dependence, cigarettes, uncomplicated; Z59.0 Homelessness

== ENCOUNTER 2019-01-03 16:22 | Emergency (ER) | payer MEDICAID ==
[~2019-01-03] VITALS: Ht 185.4 cm; Wt 99.8 kg
[2019-01-03 16:40] VITALS: BP 123/55
== END 2019-01-03 17:07 | disposition left against medical advice (07) ==
LOC: EDBD → EDUNIT# 16:22 → ER 16:25
DX: M79.605 Pain in left leg (principal); M79.604 Pain in right leg; Z53.21 Procedure and treatment not carried out due to patient leaving prior to being seen by health care provider

== ENCOUNTER 2019-01-03 21:56 | Emergency (ER) | payer MEDICAID ==
[~2019-01-03] VITALS: Ht 185.4 cm; Wt 99.8 kg
[2019-01-03 22:39] VITALS: BP 113/87
== END 2019-01-04 01:37 | disposition left against medical advice (07) ==
LOC: ER 22:00
DX: R21 Rash and other nonspecific skin eruption (principal); Z53.21 Procedure and treatment not carried out due to patient leaving prior to being seen by health care provider

== ENCOUNTER 2019-01-11 11:16 | Emergency (ER) | payer MEDICAID ==
[~2019-01-11] VITALS: Ht 182.9 cm; Wt 81.6 kg
[2019-01-11 12:21] VITALS: BP 123/82
== END 2019-01-11 13:28 | disposition home or self-care (01) ==
LOC: EDBD 11:16 → ER 11:22
DX: M79.604 Pain in right leg (principal); M79.605 Pain in left leg; R21 Rash and other nonspecific skin eruption; F10.229 Alcohol dependence with intoxication, unspecified; F17.210 Nicotine dependence, cigarettes, uncomplicated; Z59.0 Homelessness

== ENCOUNTER 2019-01-22 15:28 | Emergency (ER) | payer MEDICAID ==
[~2019-01-22] VITALS: Ht 180.3 cm; Wt 90.7 kg
[2019-01-22] MEDS ORDERED: SODIUM CHLORIDE 0.9% 1,000 ML IV ONE (16:00)
[2019-01-22] MEDS ORDERED: THIAMINE 100mg/ml INJ (200mg/2ml VIAL) IV ONE (16:00)
[2019-01-22 16:30] LABS: Basophils # (auto) 0 uL; Basophils % (auto) 0.8 % (0.0-2.0); Eosinophils # (auto) 0.2 uL; Lymphocytes # (auto) 2.1 uL; Neutrophils # (auto) 1.6 uL; Nucleated Red Blood Cells % 0.1 %; White Blood Cell 4.3 10^3/uL (4.4-10.8)
[2019-01-22 16:32] LABS: Eosinophils % (auto) 4.1 % (0.0-7.0); Hematocrit 39.2 % (41.0-53.0); Hemoglobin 13.5 g/dL (13.5-17.5); Lymphocytes % (auto) 49.4 % (10.0-50.0); Mean Corpuscular Hemoglobin 37.6 pg (28.0-32.0); Mean Corpuscular Hgb Conc. 34.3 g/dL (32.0-36.0); Mean Corpuscular Volume 109.7 fL (80.0-100.0); Monocytes # (auto) 0.4 uL; Monocytes % (auto) 8.8 % (0.0-12.0); Neutrophils % (auto) 36.9 % (37.0-80.0); Platelet Count (auto) 151 10^3/uL (140-450); Red Blood Cells 3.58 10^6/uL (4.5-5.90)
[2019-01-22 16:33] LABS: Albumin 3.8 g/dL (3.4-5.0); Calcium 8.7 mg/dL (8.5-10.1); Magnesium 1.7 mg/dL (1.6-2.6); Potassium 3.5 mmol/L (3.5-5.1)
[2019-01-22 16:37] LABS: BUN/Creatinine Ratio 25.3; Bilirubin, Total 0.2 mg/dL (0.2-1.0); Total Protein 6.8 g/dL (6.4-8.2)
[2019-01-22 21:24] VITALS: BP 122/65
== END 2019-01-22 22:21 | disposition home or self-care (01) ==
LOC: EDBD 15:28 → ER 15:32
DX: F10.229 Alcohol dependence with intoxication, unspecified (principal); R53.1 Weakness; R42 Dizziness and giddiness; R06.02 Shortness of breath; F17.210 Nicotine dependence, cigarettes, uncomplicated; Z59.0 Homelessness
CPT/HCPCS: 36415; 70450; 71045; 80053; 80320; 83735; 84484; 85025; 93005; 94761; 96374; 99284; J3411

== ENCOUNTER 2019-02-28 23:08 | Emergency (ER) | payer MEDICAID ==
[~2019-02-28] VITALS: Ht 182.9 cm; Wt 90.7 kg
[2019-03-01 00:06] LABS: Basophils # (auto) 0.1 uL; Basophils % (auto) 1.4 % (0.0-2.0); Eosinophils # (auto) 0.3 uL; Eosinophils % (auto) 4.9 % (0.0-7.0); Hematocrit 42.6 % (41.0-53.0); Hemoglobin 14.7 g/dL (13.5-17.5); Lymphocytes # (auto) 2.3 uL; Lymphocytes % (auto) 41.1 % (10.0-50.0); Mean Corpuscular Hemoglobin 36.6 pg (28.0-32.0); Mean Corpuscular Hgb Conc. 34.4 g/dL (32.0-36.0); Mean Corpuscular Volume 106.2 fL (80.0-100.0); Monocytes # (auto) 0.5 uL; Monocytes % (auto) 8.8 % (0.0-12.0); Neutrophils # (auto) 2.5 uL; Neutrophils % (auto) 43.8 % (37.0-80.0); Platelet Count (auto) 108 10^3/uL (140-450); Red Blood Cells 4.01 10^6/uL (4.5-5.90); Red Cell Distribution Width 12.7 % (11.8-14.3); White Blood Cell 5.6 10^3/uL (4.4-10.8)
[2019-03-01 00:20] LABS: INR 0.95 (0.9-1.15); Partial Thromboplastin Time 27.6 sec (23.64-32.05)
[2019-03-01 00:24] LABS: Albumin 4.2 g/dL (3.4-5.0); Anion Gap 17 (5-15); Blood Urea Nitrogen 14 mg/dL (7-18); Calcium 8.7 mg/dL (8.5-10.1); Carbon Dioxide 20 mmol/L (21-32); Chloride 106 mmol/L (98-107); Glucose 89 mg/dL (74-106); Magnesium 1.8 mg/dL (1.6-2.6); Potassium 3.2 mmol/L (3.5-5.1); Salicylate < 1.7 mg/dL (2.8-20.0); Sodium 143 mmol/L (136-145)
[2019-03-01 00:25] LABS: Acetaminophen < 2.0 ug/mL (10-30)
[2019-03-01 00:26] LABS: BUN/Creatinine Ratio 15.9; GFR African American 116 mL/min; GFR Non-African American 96 mL/min
[2019-03-01 00:35] LABS: Alanine Aminotransferase 41 U/L (16-61); Aspartate Aminotransferase 60 U/L (15-37); Bilirubin, Total 0.6 mg/dL (0.2-1.0); Total Protein 7.5 g/dL (6.4-8.2)
[2019-03-01 01:18] LABS: Alkaline Phosphatase 113 U/L (45-117)
[2019-03-01] MEDS ORDERED: THIAMINE 100mg/ml INJ (200mg/2ml VIAL) IV ONE (01:45)
[2019-03-01] MEDS ORDERED: SODIUM CHLORIDE 0.9% 1,000 ML IV ONE (01:45)
[2019-03-01] MEDS ORDERED: POTASSIUM CHL 20 Meq TABLET PO ONE (03:00)
[2019-03-01 04:25] VITALS: BP 120/80
== END 2019-03-01 06:10 | disposition home or self-care (01) ==
LOC: EDBD 23:08 → ER 23:16
DX: G92 Toxic encephalopathy (principal); F10.229 Alcohol dependence with intoxication, unspecified; F41.9 Anxiety disorder, unspecified; F17.210 Nicotine dependence, cigarettes, uncomplicated; Z59.0 Homelessness
CPT/HCPCS: 36415; 71045; 80053; 80320; 80329; 83735; 83880; 84484; 85025; 85610; 85730; 93005; 96374; 99284; J3411; J7030

== ENCOUNTER 2019-03-06 10:25 | Emergency (ER) | payer MEDICAID ==
[~2019-03-06] VITALS: Ht 185.4 cm; Wt 83.9 kg
[2019-03-06 10:36] VITALS: BP 115/66
[2019-03-06] MEDS ORDERED: ACETAMINOPHEN 500 MG TAB PO ONE (11:00)
[2019-03-06 11:10] LABS: Basophils # (auto) 0 uL; Eosinophils # (auto) 0.2 uL; Mean Corpuscular Hemoglobin 36.5 pg (28.0-32.0); Monocytes # (auto) 0.3 uL
[2019-03-06 11:12] LABS: Eosinophils % (auto) 5.1 % (0.0-7.0); Hematocrit 41.1 % (41.0-53.0); Hemoglobin 14.2 g/dL (13.5-17.5); Lymphocytes # (auto) 1.6 uL; Lymphocytes % (auto) 44.1 % (10.0-50.0); Mean Corpuscular Hgb Conc. 34.6 g/dL (32.0-36.0); Mean Corpuscular Volume 105.5 fL (80.0-100.0); Monocytes % (auto) 6.9 % (0.0-12.0); Neutrophils # (auto) 1.6 uL; Neutrophils % (auto) 42.9 % (37.0-80.0); Platelet Count (auto) 110 10^3/uL (140-450); Red Cell Distribution Width 12.9 % (11.8-14.3); White Blood Cell 3.7 10^3/uL (4.4-10.8)
[2019-03-06 11:25] LABS: Potassium 3.1 mmol/L (3.5-5.1)
[2019-03-06 11:30] LABS: Albumin 3.7 g/dL (3.4-5.0); BUN/Creatinine Ratio 16.5; Bilirubin, Total 0.4 mg/dL (0.2-1.0); Calcium 8.2 mg/dL (8.5-10.1); Total Protein 6.8 g/dL (6.4-8.2)
== END 2019-03-06 12:36 | disposition left against medical advice (07) ==
LOC: EDBD → EDUNIT# 10:25 → EDBD 10:25 → ER 10:32
DX: F10.10 Alcohol abuse, uncomplicated (principal); Z53.21 Procedure and treatment not carried out due to patient leaving prior to being seen by health care provider
CPT/HCPCS: 36415; 80053; 80320; 83735; 85025

== ENCOUNTER 2019-03-07 21:29 | Emergency (ER) | payer MEDICAID ==
[~2019-03-07] VITALS: Ht 182.9 cm; Wt 85.7 kg
[2019-03-07 21:40] VITALS: BP 123/79
== END 2019-03-08 23:06 | disposition left against medical advice (07) ==
LOC: EDBD 21:29 → ER 21:34 → EDBD 21:34 → ER 03-08 06:10
DX: M25.572 Pain in left ankle and joints of left foot (principal); M25.571 Pain in right ankle and joints of right foot; M79.672 Pain in left foot; M79.671 Pain in right foot; Z53.21 Procedure and treatment not carried out due to patient leaving prior to being seen by health care provider

== ENCOUNTER 2020-04-15 11:16 | Emergency (ER) | payer MEDICAID ==
[~2020-04-15] VITALS: Ht 172.7 cm; Wt 72.6 kg
[2020-04-15] MEDS ORDERED: KETOROLAC TROMETH 60MG/2ML VIAL IM ONE (13:30)
[2020-04-15] MEDS ORDERED: KETOROLAC TROMETH 60MG/2ML VIAL ONE (13:31)
[2020-04-15 13:33] VITALS: BP 111/80
== END 2020-04-15 14:24 | disposition home or self-care (01) ==
LOC: ER 11:16 → EDBD 11:16 → ER 14:24
DX: G89.29 Other chronic pain (principal); M25.551 Pain in right hip; M25.552 Pain in left hip; M19.90 Unspecified osteoarthritis, unspecified site; F17.210 Nicotine dependence, cigarettes, uncomplicated
CPT/HCPCS: 73502; 96372; 99283; J1885

== ENCOUNTER 2020-04-17 14:34 | Emergency (ER) | payer MEDICAID ==
[~2020-04-17] VITALS: Ht 30.5 cm; Wt 0.5 kg
[2020-04-17 14:49] VITALS: BP 109/65
[2020-04-17] MEDS ORDERED: FOLIC ACID 1 MG, MULTIPLE VITAMIN 10 ML, MAGNESIUM SULF SDV 50% 8 MEQ, THIAMINE INJ 100... INJ SCH ×5 (15:00)
[2020-04-17] MEDS ORDERED: SODIUM CHLORIDE 0.9% 1,000 ML IV ONE ×2 (15:00→19:00)
[2020-04-17 17:05] LABS: Mean Corpuscular Volume 100.1 fL (80.0-100.0); Monocytes # (auto) 0.3 10 ^3/uL (0-1.3); Neutrophils # (auto) 2.8 10 ^3/uL (1.6-8.6); Nucleated Red Blood Cells % 0.1 %; White Blood Cell 5.5 10^3/uL (4.4-10.8)
[2020-04-17 17:06] LABS: Basophils # (auto) 0 10 ^3/uL (0-0.2); Basophils % (auto) 0.7 % (0.0-2.0); Eosinophils # (auto) 0.4 10 ^3/uL (0-0.8); Eosinophils % (auto) 6.8 % (0.0-7.0); Hematocrit 42.4 % (41.0-53.0); Hemoglobin 14.5 g/dL (13.5-17.5); Mean Corpuscular Hemoglobin 34.2 pg (28.0-32.0); Mean Corpuscular Hgb Conc. 34.2 g/dL (32.0-36.0); Monocytes % (auto) 5.9 % (0.0-12.0); Neutrophils % (auto) 50.6 % (37.0-80.0); Platelet Count (auto) 135 10^3/uL (140-450); Red Blood Cells 4.24 10^6/uL (4.5-5.90); Red Cell Distribution Width 13.3 % (11.8-14.3)
[2020-04-17 17:20] LABS: Albumin 4.7 g/dL (3.4-5.0); Anion Gap 7 (5-15); Blood Urea Nitrogen 12 mg/dL (7-18); Calcium 8.4 mg/dL (8.5-10.1); Carbon Dioxide 26 mmol/L (21-32); Chloride 109 mmol/L (98-107); Glucose 160 mg/dL (74-106); Potassium 3.6 mmol/L (3.5-5.1); Sodium 142 mmol/L (136-145)
[2020-04-17 17:26] LABS: Alanine Aminotransferase 39 U/L (16-61); Alkaline Phosphatase 105 U/L (45-117); Aspartate Aminotransferase 48 U/L (15-37); BUN/Creatinine Ratio 11.5; Bilirubin, Total 0.5 mg/dL (0.2-1.0); GFR African American 95 mL/min; GFR Non-African American 79 mL/min; Total Protein 7.3 g/dL (6.4-8.2)
[2020-04-17] MEDS ORDERED: THIAMINE INJ 100 MG in SODIUM CHLORIDE 0.9% 1,000 ML IV ONE (19:00)
== END 2020-04-17 21:21 | disposition home or self-care (01) ==
LOC: EDBD 14:34 → ER 14:34
DX: F10.229 Alcohol dependence with intoxication, unspecified (principal); F17.210 Nicotine dependence, cigarettes, uncomplicated; Z59.0 Homelessness; Z86.73 Personal history of transient ischemic attack (TIA), and cerebral infarction without residual deficits; Y90.9 Presence of alcohol in blood, level not specified
CPT/HCPCS: 36415; 80053; 80320; 84484; 85025; 93005; 99284; J3411; J3475; J7030

== ENCOUNTER 2020-04-18 10:49 | Emergency (ER) | payer MEDICAID ==
[~2020-04-18] VITALS: Ht 177.8 cm; Wt 88.5 kg
[2020-04-18] MEDS ORDERED: THIAMINE INJ 100 MG in SODIUM CHLORIDE 0.9% 1,000 ML IV ONE (11:00)
[2020-04-18 11:26] LABS: Eosinophils # (auto) 0.3 10 ^3/uL (0-0.8); Hemoglobin 15.4 g/dL (13.5-17.5); Lymphocytes # (auto) 2.7 10 ^3/uL (0.4-5.4); Monocytes # (auto) 0.4 10 ^3/uL (0-1.3); Platelet Count (auto) 147 10^3/uL (140-450); White Blood Cell 6.1 10^3/uL (4.4-10.8)
[2020-04-18 11:28] LABS: Basophils # (auto) 0.1 10 ^3/uL (0-0.2); Basophils % (auto) 0.9 % (0.0-2.0); Eosinophils % (auto) 4.4 % (0.0-7.0); Hematocrit 44.4 % (41.0-53.0); Lymphocytes % (auto) 44.3 % (10.0-50.0); Mean Corpuscular Hemoglobin 34.3 pg (28.0-32.0); Mean Corpuscular Hgb Conc. 34.6 g/dL (32.0-36.0); Mean Corpuscular Volume 99.2 fL (80.0-100.0); Monocytes % (auto) 6.8 % (0.0-12.0); Neutrophils # (auto) 2.6 10 ^3/uL (1.6-8.6); Neutrophils % (auto) 43.6 % (37.0-80.0); Nucleated Red Blood Cells % 0.1 %; Red Blood Cells 4.48 10^6/uL (4.5-5.90); Red Cell Distribution Width 13.5 % (11.8-14.3)
[2020-04-18 11:44] LABS: Albumin 4.4 g/dL (3.4-5.0); Calcium 8.7 mg/dL (8.5-10.1); Potassium 3.6 mmol/L (3.5-5.1)
[2020-04-18 11:49] LABS: BUN/Creatinine Ratio 15.2; Bilirubin, Total 0.5 mg/dL (0.2-1.0); Total Protein 7.6 g/dL (6.4-8.2)
[2020-04-18 12:08] VITALS: BP 130/76
== END 2020-04-18 13:14 | disposition home or self-care (01) ==
LOC: EDUNIT# 10:49 → ER 10:49 → EDBD 10:49 → ER 13:14
DX: M79.604 Pain in right leg (principal); M79.605 Pain in left leg; M54.5 Low back pain
CPT/HCPCS: 36415; 80053; 80320; 85025; 99283; J3411; J7030

== ENCOUNTER → 2020-04-19 | Emergency (ER) | payer MEDICAID ==
[~2020-04-19] VITALS: Ht 172.7 cm; Wt 63.5 kg
[~2020-04-19] MED LIST: SODIUM CHLORIDE 0.9% 1,000 ML IV ONE; THIAMINE 100mg/ml INJ (200mg/2ml VIAL) IV ONE
[2020-04-19 13:58] VITALS: BP 129/75
[2020-04-19 14:30] LABS: Basophils # (auto) 0.1 10 ^3/uL (0-0.2); Basophils % (auto) 2.1 % (0.0-2.0); Eosinophils # (auto) 0.2 10 ^3/uL (0-0.8); Eosinophils % (auto) 4.2 % (0.0-7.0); Hematocrit 41.1 % (41.0-53.0); Hemoglobin 14.1 g/dL (13.5-17.5); Lymphocytes % (auto) 46.2 % (10.0-50.0); Mean Corpuscular Hemoglobin 33.9 pg (28.0-32.0); Mean Corpuscular Hgb Conc. 34.2 g/dL (32.0-36.0); Mean Corpuscular Volume 99.2 fL (80.0-100.0); Monocytes # (auto) 0.3 10 ^3/uL (0-1.3); Monocytes % (auto) 8.2 % (0.0-12.0); Neutrophils # (auto) 1.7 10 ^3/uL (1.6-8.6); Neutrophils % (auto) 39.3 % (37.0-80.0); Nucleated Red Blood Cells % 0.1 %; Platelet Count (auto) 136 10^3/uL (140-450); Red Blood Cells 4.15 10^6/uL (4.5-5.90); Red Cell Distribution Width 13.6 % (11.8-14.3); White Blood Cell 4.3 10^3/uL (4.4-10.8)
[2020-04-19 14:51] LABS: BUN/Creatinine Ratio 13.3; Calcium 8.2 mg/dL (8.5-10.1); Potassium 3.6 mmol/L (3.5-5.1)
[2020-04-19 15:02] LABS: Bilirubin, Total 0.6 mg/dL (0.2-1.0)
== END | disposition home or self-care (01) ==
LOC: EDUNIT# 13:45 → ER 13:53 → EDBD 13:53
DX: F10.129 Alcohol abuse with intoxication, unspecified (principal); E86.0 Dehydration; F17.210 Nicotine dependence, cigarettes, uncomplicated; Z59.0 Homelessness; Z86.73 Personal history of transient ischemic attack (TIA), and cerebral infarction without residual deficits; Y90.9 Presence of alcohol in blood, level not specified
CPT/HCPCS: 36415; 80053; 80320; 85025; 96361; 96374; 99283; J3411

== ENCOUNTER 2020-06-19 18:42 | Emergency (ER) | payer MEDICAID ==
[~2020-06-19] VITALS: Ht 172.7 cm; Wt 72.6 kg
[2020-06-19] MEDS ORDERED: SODIUM CHLORIDE 0.9% 1,000 ML IV ONE ×2 (19:45→20:15)
[2020-06-19 20:28] LABS: Basophils # (auto) 0 10 ^3/uL (0-0.2); Basophils % (auto) 0.5 % (0.0-2.0); Eosinophils # (auto) 0.1 10 ^3/uL (0-0.8); Eosinophils % (auto) 1.6 % (0.0-7.0); Hematocrit 39.1 % (41.0-53.0); Hemoglobin 13.5 g/dL (13.5-17.5); Lymphocytes # (auto) 1.6 10 ^3/uL (0.4-5.4); Lymphocytes % (auto) 31.8 % (10.0-50.0); Mean Corpuscular Hgb Conc. 34.6 g/dL (32.0-36.0); Mean Corpuscular Volume 104.1 fL (80.0-100.0); Monocytes # (auto) 0.2 10 ^3/uL (0-1.3); Monocytes % (auto) 4.4 % (0.0-12.0); Neutrophils # (auto) 3.1 10 ^3/uL (1.6-8.6); Neutrophils % (auto) 61.7 % (37.0-80.0); Nucleated Red Blood Cells % 0.1 %; Platelet Count (auto) 109 10^3/uL (140-450); Red Blood Cells 3.75 10^6/uL (4.5-5.90); Red Cell Distribution Width 17.1 % (11.8-14.3)
[2020-06-19 20:45] LABS: Albumin 3.9 g/dL (3.4-5.0); Calcium 7.7 mg/dL (8.5-10.1); Potassium 3.5 mmol/L (3.5-5.1)
[2020-06-19 20:51] LABS: BUN/Creatinine Ratio 12.8; Bilirubin, Total 0.7 mg/dL (0.2-1.0); Total Protein 6.4 g/dL (6.4-8.2)
[2020-06-20 03:38] VITALS: BP 124/70
== END 2020-06-20 06:10 | disposition home or self-care (01) ==
LOC: EDBD 18:42 → ER 18:44
DX: F10.129 Alcohol abuse with intoxication, unspecified (principal); I95.9 Hypotension, unspecified; R41.82 Altered mental status, unspecified; Z86.73 Personal history of transient ischemic attack (TIA), and cerebral infarction without residual deficits; Z59.0 Homelessness; Y90.9 Presence of alcohol in blood, level not specified
CPT/HCPCS: 36415; 70450; 72125; 80053; 80320; 85025; 93005; 96360; 99285; J7030

== ENCOUNTER 2020-10-22 15:05 | Emergency (ER) | payer MEDICAID ==
[~2020-10-22] VITALS: Ht 182.9 cm; Wt 83.9 kg
[2020-10-22 16:08] VITALS: BP 156/93
[2020-10-22] MEDS ORDERED: KETOROLAC TROMETH 60MG/2ML VIAL IM ONE (17:45)
== END 2020-10-22 18:03 | disposition home or self-care (01) ==
LOC: ER 15:05
DX: M25.552 Pain in left hip (principal); F17.210 Nicotine dependence, cigarettes, uncomplicated; Z86.73 Personal history of transient ischemic attack (TIA), and cerebral infarction without residual deficits; Z59.0 Homelessness; V09.3XXA Pedestrian injured in unspecified traffic accident, initial encounter; Y93.89 Activity, other specified; Y92.488 Other paved roadways as the place of occurrence of the external cause; Y99.8 Other external cause status
CPT/HCPCS: 73502; 96372; 99283; J1885

== ENCOUNTER 2020-11-09 09:49 | Emergency (ER) | payer MEDICAID ==
[~2020-11-09] VITALS: Ht 175.3 cm; Wt 74.8 kg
[2020-11-09] MEDS ORDERED: SODIUM CHLORIDE 0.9% 1,000 ML IV ONE (10:00)
[2020-11-09] MEDS ORDERED: THIAMINE 100mg/ml INJ (200mg/2ml VIAL) IV ONE (10:30)
[2020-11-09 10:36] LABS: Basophils # (auto) 0 10 ^3/uL (0-0.2); Basophils % (auto) 0.9 % (0.0-2.0); Eosinophils # (auto) 0.2 10 ^3/uL (0-0.8); Lymphocytes # (auto) 2.2 10 ^3/uL (0.4-5.4); Monocytes # (auto) 0.5 10 ^3/uL (0-1.3); Neutrophils # (auto) 1.5 10 ^3/uL (1.6-8.6); Neutrophils % (auto) 33.7 % (37.0-80.0); Red Blood Cells 3.76 10^6/uL (4.5-5.90)
[2020-11-09 10:38] LABS: Eosinophils % (auto) 4.8 % (0.0-7.0); Hematocrit 40.7 % (41.0-53.0); Hemoglobin 14.1 g/dL (13.5-17.5); Lymphocytes % (auto) 48.8 % (10.0-50.0); Mean Corpuscular Hemoglobin 37.5 pg (28.0-32.0); Mean Corpuscular Hgb Conc. 34.6 g/dL (32.0-36.0); Mean Corpuscular Volume 108.2 fL (80.0-100.0); Monocytes % (auto) 11.8 % (0.0-12.0); Nucleated Red Blood Cells % 0.3 %; Platelet Count (auto) 107 10^3/uL (140-450); Red Cell Distribution Width 14.2 % (11.8-14.3); White Blood Cell 4.5 10^3/uL (4.4-10.8)
[2020-11-09 10:53] LABS: Chloride 110 mmol/L (98-107); Potassium 3.4 mmol/L (3.5-5.1); Sodium 144 mmol/L (136-145)
[2020-11-09 11:04] LABS: Alanine Aminotransferase 108 U/L (16-61); Albumin 4.4 g/dL (3.4-5.0); Alkaline Phosphatase 201 U/L (45-117); Anion Gap 6 (5-15); Aspartate Aminotransferase 193 U/L (15-37); BUN/Creatinine Ratio 25.7; Bilirubin, Total 0.4 mg/dL (0.2-1.0); Blood Urea Nitrogen 18 mg/dL (7-18); Calcium 8.4 mg/dL (8.5-10.1); Carbon Dioxide 28 mmol/L (21-32); GFR African American 149 mL/min; GFR Non-African American 124 mL/min; Glucose 91 mg/dL (74-106); Total Protein 7.9 g/dL (6.4-8.2)
[2020-11-09] MEDS ORDERED: POTASSIUM EFFERVESENT TAB 25 MEQ PO ONE (11:15)
[2020-11-09 12:15] VITALS: BP 117/72
== END 2020-11-09 13:01 | disposition left against medical advice (07) ==
LOC: ER 09:49 → EDBD 09:49 → ER 13:01
DX: S86.912A Strain of unspecified muscle(s) and tendon(s) at lower leg level, left leg, initial encounter (principal); S86.911A Strain of unspecified muscle(s) and tendon(s) at lower leg level, right leg, initial encounter; E86.0 Dehydration; R07.9 Chest pain, unspecified; F17.210 Nicotine dependence, cigarettes, uncomplicated; R51.9 Headache, unspecified; Z86.73 Personal history of transient ischemic attack (TIA), and cerebral infarction without residual deficits; Z59.0 Homelessness; Y08.89XA Assault by other specified means, initial encounter; Y93.89 Activity, other specified; Y92.89 Other specified places as the place of occurrence of the external cause; Y99.8 Other external cause status
CPT/HCPCS: 36415; 70450; 71045; 80053; 84484; 85025; 96361; 96374; 99285; J3411; J7030

== ENCOUNTER 2020-12-16 11:23 | Emergency (ER) | payer MEDICAID ==
[~2020-12-16] VITALS: Ht 182.9 cm; Wt 90.7 kg
[2020-12-16 11:30] VITALS: BP 127/92
== END 2020-12-16 11:43 | disposition left against medical advice (07) ==
LOC: ER 11:23 → EDUNIT# 11:23 → EDBD 11:23 → ER 11:43
DX: F10.10 Alcohol abuse, uncomplicated (principal); Z53.21 Procedure and treatment not carried out due to patient leaving prior to being seen by health care provider